=== PATIENT | female | born 1995 | race Caucasian/White ===

== ENCOUNTER 2016-12-21 13:13 | Emergency (ER) | payer SELFPAY ==
[~2016-12-21] VITALS: Ht 160 cm; Wt 57.0 kg
[2016-12-21 13:26] VITALS: BP 125/78
== END 2016-12-21 22:50 | disposition left against medical advice (07) ==
LOC: ER 15:22
DX: Z53.21 Procedure and treatment not carried out due to patient leaving prior to being seen by health care provider (principal)

== ENCOUNTER 2017-03-26 05:26 | Emergency (ER) | payer SELFPAY ==
[~2017-03-26] VITALS: Ht 160 cm; Wt 56.0 kg
[2017-03-26 05:41] VITALS: BP 111/63
== END 2017-03-26 08:13 | disposition left against medical advice (07) ==
LOC: ER 08:13
DX: Z53.21 Procedure and treatment not carried out due to patient leaving prior to being seen by health care provider (principal)